=== PATIENT | female | born 1960 | race Caucasian/White ===

== ENCOUNTER → 2016-07-19 | Outpatient (CLI) | payer MEDICARE | LOC: HEART CORB 06-26 13:00 | DX: I35.1 Nonrheumatic aortic (valve) insufficiency (principal) | CPT/HCPCS: 93306 ==

== ENCOUNTER 2021-05-28 14:39 | Inpatient (IN) | payer MEDICARE, OTHER ==
[~2021-05-28] VITALS: Ht 160 cm; Wt 90.7 kg
[2021-05-28 16:25] LABS: HEMOGLOBIN 14.7 gm/dl (12.3-15.3); RED BLOOD COUNT 4.66 M/UL (4.00-5.10); WHITE BLOOD COUNT 28.8 K/UL (4.5-11.0)
[2021-05-28 16:42] LABS: BUN/CREATININE RATIO 33 (0-10)
[2021-05-28] MEDS ORDERED: LOPRESSOR 50 MG50 MG PO (19:15)
[2021-05-28] MEDS ORDERED: VRAYLAR1.5 MG PO (19:17)
[2021-05-28] MEDS ORDERED: VITAMIN D31250 MCG PO (19:20)
[2021-05-28] MEDS ORDERED: DEXILANT60 MG PO (19:23)
[2021-05-28] MEDS ORDERED: DULOXETINE HCL60 MG PO (19:23)
[2021-05-28] MEDS ORDERED: FENOFIBRATE130 MG PO (19:24)
[2021-05-28] MEDS ORDERED: HARD NAILS2500 MCG PO (19:25)
[2021-05-29 04:33] LABS: RED BLOOD COUNT 4.11 M/UL (4.00-5.10); WHITE BLOOD COUNT 30.3 K/UL (4.5-11.0)
[2021-05-29 05:17] LABS: CANDIDA ALBICANS Not Detected (Negative); CANDIDA KRUSEI Not Detected (Negative); CANDIDA TROPICALIS Not Detected (Negative); ESCHERICHIA COLI Not Detected (Negative); HAEMOPHILUS INFLUENZAE Not Detected (Negative); KLEBSIELLA OXYTOCA Not Detected (Negative); KLEBSIELLA PNEUMONIAE Not Detected (Negative); KPC-CARBAPENEM-RESISTANCE GENE Not Detected (Negative); PROTEUS Not Detected (Negative); PSEUDOMONAS AERUGINOSA Not Detected (Negative); SERRATIA MARCESANS Not Detected (Negative); STAPHYLOCOCCUS Not Detected (Negative); STAPHYLOCOCCUS AUREUS Not Detected (Negative); STREP AGALACTIAE (GROUP B) Not Detected (Negative); STREP PYOGENES (GROUP A) Not Detected (Negative); vanA/B (VANCOMYCIN RESIST GENE Not Detected (Negative)
[2021-05-29 06:25] LABS: STREPTOCOCCUS DETECTED (Negative)
[2021-05-30 05:18] LABS: HEMOGLOBIN 12.2 gm/dl (12.3-15.3); RED BLOOD COUNT 3.86 M/UL (4.00-5.10)
[2021-05-30 05:26] LABS: WHITE BLOOD COUNT 34.7 K/UL (4.5-11.0)
[2021-05-31 05:19] LABS: HEMOGLOBIN 12.1 gm/dl (12.3-15.3); RED BLOOD COUNT 3.84 M/UL (4.00-5.10)
[2021-05-31 05:28] LABS: WHITE BLOOD COUNT 17.7 K/UL (4.5-11.0)
[2021-05-31 05:43] LABS: BUN/CREATININE RATIO 41 (0-10)
[2021-05-31 12:12] LABS: ORGANISM ID Not indicated. (.); SPECIMEN SOURCE Urine (.)
[2021-05-31 14:13] LABS: STREPTOCOCCUS PNEUMONIAE AG Positive (Negative)
[2021-05-31] MEDS ORDERED: HAIR SKIN NAIL1 EACH PO (15:00)
[2021-05-31] MEDS ORDERED: ANASTROZOLE1 MG PO (19:17)
[2021-06-01 02:31] LABS: HEMOGLOBIN 12.2 gm/dl (12.3-15.3); RED BLOOD COUNT 3.89 M/UL (4.00-5.10); WHITE BLOOD COUNT 14.7 K/UL (4.5-11.0)
[2021-06-01 02:42] LABS: BUN/CREATININE RATIO 42 (0-10)
[2021-06-02 02:37] LABS: BUN/CREATININE RATIO 36 (0-10)
[2021-06-03 02:17] LABS: HEMOGLOBIN 12.5 gm/dl (12.3-15.3); RED BLOOD COUNT 3.91 M/UL (4.00-5.10); WHITE BLOOD COUNT 13.7 K/UL (4.5-11.0)
[2021-06-03 02:41] LABS: BUN/CREATININE RATIO 34 (0-10)
[2021-06-04] MEDS ORDERED: NICOTINE PATCH1 EAC2 TOP (10:57)
[2021-06-04] MEDS ORDERED: PREDNISONE10 MG PO (10:57)
[2021-06-04] MEDS ORDERED: TYLENOL 8 HOUR650 MG PO (10:57)
[2021-06-04] MEDS ORDERED: CEFUROXIME500 MG PO (10:57)
[2021-06-04] MEDS ORDERED: SYMBICORT 80-10.2 GM INH (10:57)
[2021-06-04] MEDS ORDERED: PROVENTIL HFA6.7 GM INH (10:57)
== END 2021-06-04 12:42 | disposition home or self-care (01) | DRG 871 ==
LOC: ER1 14:39 → CDU 17:16 → CCU 17:16 → PROG CARE 05-31 20:17
PROVIDERS: Internal Medicine; Internal Medicine Infectious Disease; Physician Assistant; ADMIT Internal Medicine
PROC: 5A09457 Assistance with Respiratory Ventilation, 24-96 Consecutive Hours, Continuous Positive Airway Pressure (ICD-10-PCS; 2021-05-28)
PROC: 3E04329 Introduction of Other Anti-infective into Central Vein, Percutaneous Approach (ICD-10-PCS; 2021-05-28)
PROC: B24BZZZ Ultrasonography of Heart with Aorta (ICD-10-PCS; principal; 2021-05-29)
PROC: 5A0935A Assistance with Respiratory Ventilation, Less than 24 Consecutive Hours, High Flow/Velocity Cannula (ICD-10-PCS; 2021-05-30)
PROC: 5A09357 Assistance with Respiratory Ventilation, Less than 24 Consecutive Hours, Continuous Positive Airway Pressure (ICD-10-PCS; 2021-05-30)
PROC: 5A09357 Assistance with Respiratory Ventilation, Less than 24 Consecutive Hours, Continuous Positive Airway Pressure (ICD-10-PCS; 2021-06-01)
PROC: 5A09357 Assistance with Respiratory Ventilation, Less than 24 Consecutive Hours, Continuous Positive Airway Pressure (ICD-10-PCS; 2021-06-01)
DX: A40.3 Sepsis due to Streptococcus pneumoniae (principal); J13 Pneumonia due to Streptococcus pneumoniae; J96.01 Acute respiratory failure with hypoxia; Z20.822 Contact with and (suspected) exposure to COVID-19; R65.21 Severe sepsis with septic shock; N17.9 Acute kidney failure, unspecified; J44.0 Chronic obstructive pulmonary disease with (acute) lower respiratory infection; J44.1 Chronic obstructive pulmonary disease with (acute) exacerbation; I10 Essential (primary) hypertension; K44.9 Diaphragmatic hernia without obstruction or gangrene; M79.662 Pain in left lower leg; R59.0 Localized enlarged lymph nodes; M79.661 Pain in right lower leg; E78.5 Hyperlipidemia, unspecified; E87.6 Hypokalemia; F41.9 Anxiety disorder, unspecified; D72.828 Other elevated white blood cell count; T38.0X5A Adverse effect of glucocorticoids and synthetic analogues, initial encounter; I27.20 Pulmonary hypertension, unspecified; F17.210 Nicotine dependence, cigarettes, uncomplicated; Z85.3 Personal history of malignant neoplasm of breast; Z99.81 Dependence on supplemental oxygen; Z71.6 Tobacco abuse counseling; Z88.8 Allergy status to other drugs, medicaments and biological substances; Z80.1 Family history of malignant neoplasm of trachea, bronchus and lung; Z90.49 Acquired absence of other specified parts of digestive tract; Z88.6 Allergy status to analgesic agent
CPT/HCPCS: ECHO; 0240U; 36415; 36600; 71045; 71250; 71275; 80048; 80053; 80202; 81001; 82550; 82553; 82803; 82962; 83036; 83605; 83735; 83880; 84439; 84443; 84484; 85025; 86140; 87040; 87070; 87077; 87081; 87150; 87186; 87205; 87278; 87899; 93005; 93270; 93306; 93970; 94640; 94660; 94664; 94760; 96374; 96375; 99285; C9113; J0456; J0692; J0696; J1650; J1956; J2185; J2405; J2920; J2930; J3370; J7030; J7070; Q9967; U0002

== ENCOUNTER 2021-06-28 16:10 | Emergency (ER) | payer MEDICARE ==
[~2021-06-28 16:10] MED LIST: ANASTROZOLE1 MG PO; CEFUROXIME500 MG PO; DEXILANT60 MG PO; DULOXETINE HCL60 MG PO; FENOFIBRATE130 MG PO; HAIR SKIN NAIL1 EACH PO; HARD NAILS2500 MCG PO; LOPRESSOR 50 MG50 MG PO; NICOTINE PATCH1 EAC2 TOP; PREDNISONE10 MG PO; PROVENTIL HFA6.7 GM INH; SYMBICORT 80-10.2 GM INH; TYLENOL 8 HOUR650 MG PO; VITAMIN D31250 MCG PO; VRAYLAR1.5 MG PO
[2021-06-28 17:18] LABS: HEMOGLOBIN 16.5 gm/dl (12.3-15.3); RED BLOOD COUNT 5.17 M/UL (4.00-5.10)
[2021-06-28 17:54] LABS: BUN/CREATININE RATIO 26 (0-10)
== END 2021-06-28 20:25 | disposition home or self-care (01) ==
LOC: ER1 16:10
PROVIDERS: Emergency Medicine
DX: R07.89 Other chest pain (principal); J44.9 Chronic obstructive pulmonary disease, unspecified; I10 Essential (primary) hypertension; F17.210 Nicotine dependence, cigarettes, uncomplicated; Z88.8 Allergy status to other drugs, medicaments and biological substances
CPT/HCPCS: 80053; 82550; 82553; 84484; 85025; 93005; 99285; Q9967